=== PATIENT | female | born 1995 | race Hispanic/Latino ===

== ENCOUNTER 2019-04-09 17:42 | Inpatient (IN) | payer OTHER | END 2019-04-11 17:55 | disposition home or self-care (01) | LOC: WSH 04-10 16:56 → LDH 17:42 | PROC: 10E0XZZ Delivery of Products of Conception, External Approach (ICD-10-PCS; principal; ~2019-04-09) | DX: O99.824 Streptococcus B carrier state complicating childbirth (principal); Z37.0 Single live birth; O76 Abnormality in fetal heart rate and rhythm complicating labor and delivery; O69.81X0 Labor and delivery complicated by cord around neck, without compression, not applicable or unspecified ==